=== PATIENT | female | born 1990 | race Caucasian/White ===

== ENCOUNTER 2018-02-16 13:44 | Emergency (ER) | payer MEDICAID ==
[~2018-02-16] VITALS: Ht 177.8 cm; Wt 81.6 kg
[2018-02-16 13:59] VITALS: BP_SYST 145
[2018-02-16 14:53] VITALS: BP_SYST 145
== END 2018-02-16 14:53 | disposition home or self-care (01) ==
LOC: SED 13:44
DX: L25.9 Unspecified contact dermatitis, unspecified cause (principal); Z90.49 Acquired absence of other specified parts of digestive tract
CPT/HCPCS: 99283